=== PATIENT | female | born 1985 | race Caucasian/White ===

== ENCOUNTER → 2019-03-10 | Outpatient (CLI) | payer OTHER ==
--- NOTE | 2019-03-10 14:55 | US ---
EXAMINATION TYPE: US transvaginal DATE OF EXAM: 03/10/2019 COMPARISON: NONE CLINICAL HISTORY: R10.2 Pelvic pain; N92.6 Irregular menses. Irregular menses. TECHNIQUE: Transvaginal (TV). EXAM MEASUREMENTS: Uterus: 5.9 x 3.3 x 4.3 cm Endometrial Stripe: 0.5 cm Left Ovary: 2.3 x 1.3 x 1.9 cm 1. Uterus: Anteverted wnl 2. Endometrium: wnl 3. Right Ovary: Obscured by overlying bowel gas 4. Left Ovary: Follicles seen. 5. Bilateral Adnexa: wnl 6. Posterior cul-de-sac: wnl IMPRESSION: 1. No acute process.
== END | disposition home or self-care (01) ==
LOC: RADUSWWP 14:17
PROVIDERS: ATTEND Obstetrics & Gynecology
DX: N92.6 Irregular menstruation, unspecified (principal)
CPT/HCPCS: 76830

== ENCOUNTER 2020-07-31 14:53 | Emergency (ER) | payer BC, OTHER ==
[2020-07-31 15:15] VITALS: TEMP 98.4
--- NOTE | 2020-07-31 15:35 | ED ---
Abdominal Pain HPI - General Chief Complaint: Abdominal Pain Stated Complaint: Possible miscarriage Time Seen by Provider: 07/31/20 15:23 Source: patient, RN notes reviewed, old records reviewed Mode of arrival: ambulatory Limitations: no limitations - History of Present Illness Initial Comments: Patient is a 34-year-old female, . She has had one previous miscarriage and one previous ectopic which resulted in removal of the right ovary and fallopian tube. Patient reports that she had a positive test 2 days ago and started to have some lower left-sided abdominal cramping and pain for the past day. She also reports that he she noticed heavy vaginal bleeding. She states that the pain and bleeding meter concern for possible ectopic again. Her [employer] is Dr. Lizarraga. She denies any dysuria or changes in bowel habits. - Related Data Home Medications Medication Instructions Recorded Confirmed Levothyroxine Sodium [Synthroid] 25 mcg PO DAILY 07/16/16 08/17/16 Allergies Allergy/AdvReac Type Severity Reaction Status Date / Time nickel Allergy Rash/Hives Verified 07/31/20 15:14 Review of Systems ROS Statement: Those systems with pertinent positive or pertinent negative responses have been documented in the HPI. ROS Other: All systems not noted in ROS Statement are negative. Past Medical History Past Medical History: Thyroid Disorder Additional Past Medical History / Comment(s): She has had one SAB and 3 VD. This is her fifth . History of Any Multi-Drug Resistant Organisms: None Reported Past Surgical History: No Surgical Hx Reported Additional Past Surgical History / Comment(s): sugery for eptopic Past Anesthesia/Blood Transfusion Reactions: No Reported Reaction Past Psychological History: No Psychological Hx Reported Smoking Status: Never smoker Past Alcohol Use History: Occasional Past Drug Use History: None Reported - Past Family History Mother Family Medical History: Cancer Additional Family Medical History / Comment(s): Breast and cervical cancer General Exam - General Exam Comments Initial Comments: 34-year-old female. No distress. Limitations: no limitations General appearance: alert, in no apparent distress Head exam: Present: atraumatic, normocephalic, normal inspection Eye exam: Present: normal appearance, PERRL, EOMI. Absent: scleral icterus, conjunctival injection, periorbital swelling ENT exam: Present: normal exam Neck exam: Present: normal inspection. Absent: tenderness, meningismus, lymphadenopathy Respiratory exam: Present: normal lung sounds bilaterally. Absent: respiratory distress, wheezes, rales, rhonchi, stridor Cardiovascular Exam: Present: regular rate GI/Abdominal exam: Present: soft, normal bowel sounds. Absent: distended, tenderness, guarding, rebound, rigid Extremities exam: Present: normal inspection, full ROM, normal capillary refill. Absent: tenderness, pedal edema, joint swelling, calf tenderness Back exam: Present: normal inspection Neurological exam: Present: alert, oriented X3, CN II-XII intact Psychiatric exam: Present: normal affect, normal mood Skin exam: Present: warm, dry, intact, normal color. Absent: rash Course Vital Signs 07/31/20 15:12 Temperature 98.4 F Pulse Rate 75 Respiratory 20 Rate Blood Pressure 112/68 O2 Sat by Pulse 99 Oximetry Medical Decision Making - Lab Data Result diagrams: 07/31/20 15:46 07/31/20 15:46 Lab Results 07/31/20 07/31/20 07/31/20 Range/Units 15:30 15:46 15:46 WBC 3.6 L (3.8-10.6) k/uL RBC 4.81 (3.80-5.40) m/uL Hgb 14.4 (11.4-16.0) gm/dL Hct 42.9 (34.0-46.0) % MCV 89.2 (80.0-100.0) fL MCH 29.9 (25.0-35.0) pg MCHC 33.5 (31.0-37.0) g/dL RDW 12.8 (11.5-15.5) % Plt Count 197 (150-450) k/uL MPV 8.2 Neutrophils % 56 % Lymphocytes % 31 % Monocytes % 9 % Eosinophils % 1 % Basophils % 1 % Neutrophils # 2.0 (1.3-7.7) k/uL Lymphocytes # 1.1 (1.0-4.8) k/uL Monocytes # 0.3 (0-1.0) k/uL Eosinophils # 0.0 (0-0.7) k/uL Basophils # 0.0 (0-0.2) k/uL PT 9.5 (9.0-12.0) sec INR 0.9 (<1.2) APTT 24.7 (22.0-30.0) sec Sodium (137-145) mmol/L Potassium (3.5-5.1) mmol/L Chloride (98-107) mmol/L Carbon Dioxide (22-30) mmol/L Anion Gap mmol/L BUN (7-17) mg/dL Creatinine (0.52-1.04) mg/dL Est GFR (CKD-EPI)AfAm (>60 ml/min/1.73 sqM) Est GFR (CKD-EPI)NonAf (>60 ml/min/1.73 sqM) Glucose (74-99) mg/dL Calcium (8.4-10.2) mg/dL HCG, Quant mIU/mL Urine Color Urine Appearance (Clear) Urine pH (5.0-8.0) Ur Specific [place] (1.001-1.035) Urine Protein (Negative) Urine Glucose (UA) (Negative) Urine Ketones (Negative) Urine Blood (Negative) Urine Nitrite (Negative) Urine Bilirubin (Negative) Urine Urobilinogen (<2.0) mg/dL Ur Leukocyte Esterase (Negative) Urine RBC (0-5) /hpf Urine WBC (0-5) /hpf Ur Squamous Epith Cells (0-4) /hpf Urine Mucus (None) /hpf Blood Type B Positive Blood Type Recheck B Pos Bld Type Recheck Status No 07/31/20 07/31/20 Range/Units 15:46 15:46 WBC (3.8-10.6) k/uL RBC (3.80-5.40) m/uL Hgb (11.4-16.0) gm/dL Hct (34.0-46.0) % MCV (80.0-100.0) fL MCH (25.0-35.0) pg MCHC (31.0-37.0) g/dL RDW (11.5-15.5) % Plt Count (150-450) k/uL MPV Neutrophils % % Lymphocytes % % Monocytes % % Eosinophils % % Basophils % % Neutrophils # (1.3-7.7) k/uL Lymphocytes # (1.0-4.8) k/uL Monocytes # (0-1.0) k/uL Eosinophils # (0-0.7) k/uL Basophils # (0-0.2) k/uL PT (9.0-12.0) sec INR (<1.2) APTT (22.0-30.0) sec Sodium 139 (137-145) mmol/L Potassium 4.3 (3.5-5.1) mmol/L Chloride 106 (98-107) mmol/L Carbon Dioxide 27 (22-30) mmol/L Anion Gap 6 mmol/L BUN 7 (7-17) mg/dL Creatinine 0.59 (0.52-1.04) mg/dL Est GFR (CKD-EPI)AfAm >90 (>60 ml/min/1.73 sqM) Est GFR (CKD-EPI)NonAf >90 (>60 ml/min/1.73 sqM) Glucose 97 (74-99) mg/dL Calcium 8.9 (8.4-10.2) mg/dL HCG, Quant 4.7 mIU/mL Urine Color Yellow Urine Appearance Clear (Clear) Urine pH 6.5 (5.0-8.0) Ur Specific [place] 1.012 (1.001-1.035) Urine Protein Negative (Negative) Urine Glucose (UA) Negative (Negative) Urine Ketones Negative (Negative) Urine Blood Moderate H (Negative) Urine Nitrite Negative (Negative) Urine Bilirubin Negative (Negative) Urine Urobilinogen <2.0 (<2.0) mg/dL Ur Leukocyte Esterase Negative (Negative) Urine RBC 132 H (0-5) /hpf Urine WBC 1 (0-5) /hpf Ur Squamous Epith Cells 3 (0-4) /hpf Urine Mucus Rare H (None) /hpf Blood Type Blood Type Recheck Bld Type Recheck Status Disposition Clinical Impression: Threatened miscarriage Disposition: HOME SELF-CARE Condition: Good Instructions (If sedation given, give patient instructions): Threatened Miscarriage (ED) Additional Instructions: Repeat hCG in 2 days. Follow-up with Dr. Murillo. Return to the ED if any alarming signs or symptoms occur. Is patient prescribed a controlled substance at d/c from ED?: No Referrals: Zeus Elam DO [Primary Care Provider] - 1-2 days Duran Lizarraga MD [STAFF PHYSICIAN] - 1-2 days Time of Disposition: 17:16
[2020-07-31 15:57] LABS: Basophils % (A) 1 %; Eosinophils % (A) 1 %; HCT 42.9 % (34.0-46.0); HGB 14.4 gm/dL (11.4-16.0); Lymphocytes # (A) 1.1 k/uL (1.0-4.8); Lymphocytes % (A) 31 %; MCH 29.9 pg (25.0-35.0); MCHC 33.5 g/dL (31.0-37.0); MCV 89.2 fL (80.0-100.0); Mean Platelet Volume 8.2; Monocytes # (A) 0.3 k/uL (0-1.0); Monocytes % (A) 9 %; Neutrophils % (A) 56 %; Platelet Count 197 k/uL (150-450); RBC 4.81 m/uL (3.80-5.40); RDW 12.8 % (11.5-15.5); WBC 3.6 k/uL (3.8-10.6)
[2020-07-31 16:05] LABS: Appearance,Urine Clear (Clear); Bilirubin,Urine Negative (Negative); Blood,Urine Moderate (Negative); Color,Urine Yellow; Glucose,Urine (UA) Negative (Negative); Ketones,Urine Negative (Negative); Leukocyte Esterase,Urine Negative (Negative); Mucus,Urine Rare /hpf; Nitrite,Urine Negative (Negative); PH, Urine 6.5 (5.0-8.0); Protein,Urine Negative (Negative); RBC,Urine 132 /hpf (0-5); Specific Gravity,Urine 1.012 (1.001-1.035); Squamous Epithelial Cell,Urine 3 /hpf (0-4); Urobilinogen,Urine <2.0 mg/dL (<2.0); WBC,Urine 1 /hpf (0-5)
[2020-07-31 16:06] LABS: African American GFR (CKD) >90 (>60 ml/min/1.73 sqM); Anion Gap 6 mmol/L; Blood Urea Nitrogen 7 mg/dL (7-17); Calcium 8.9 mg/dL (8.4-10.2); Carbon Dioxide 27 mmol/L (22-30); Chloride 106 mmol/L (98-107); Glucose 97 mg/dL (74-99); Non-African American GFR(CKD) >90 (>60 ml/min/1.73 sqM); Potassium 4.3 mmol/L (3.5-5.1); Sodium 139 mmol/L (137-145)
[2020-07-31 16:09] LABS: INR 0.9 (<1.2); Partial Thromboplastin Time 24.7 sec (22.0-30.0); Prothrombin Time 9.5 sec (9.0-12.0)
[2020-07-31 16:23] LABS: HCG,Quantitative Serum 4.7 mIU/mL
--- NOTE | 2020-07-31 16:53 | US ---
EXAMINATION TYPE: US transvaginal DATE OF EXAM: 07/31/2020 COMPARISON: NONE CLINICAL HISTORY: Left sided pain TECHNIQUE: Transvaginal (TV). Date of LMP: 06-25-20 EXAM MEASUREMENTS: Uterus: 8.8 x 4.2 x 4.6 cm Endometrial Stripe: 1.3 cm Right Ovary: 2.0 x 1.1 x 1.3 cm Left Ovary: 1.7 x 1.0 x 0.9 cm 1. Uterus: Anteverted wnl 2. Endometrium: wnl 3. Right Ovary: wnl 4. Left Ovary: wnl Spectral, color and waveform doppler imaging shows good arterial and venous flow within the ovaries ; there is no evidence for ovarian torsion. 5. Bilateral Adnexa: wnl 6. Posterior cul-de-sac: wnl No sign of ectopic . IMPRESSION: Normal uterus and endometrium. Normal ovaries. No evidence of ovarian torsion. No evidence of intraut erine gestational sac. No adnexal mass. No sign of ectopic .
[2020-07-31 17:20] VITALS: RESP 18
[2020-07-31 17:32] VITALS: BP 116/72; PULSE 66
== END 2020-07-31 17:32 | disposition home or self-care (01) ==
LOC: EC 14:53
DX: O20.0 Threatened abortion (principal); Z91.048 Other nonmedicinal substance allergy status; Z3A.01 Less than 8 weeks gestation of pregnancy; O99.281 Endocrine, nutritional and metabolic diseases complicating pregnancy, first trimester; Z79.890 Hormone replacement therapy; Z87.59 Personal history of other complications of pregnancy, childbirth and the puerperium
CPT/HCPCS: 36415; 76830; 80048; 81001; 84702; 85025; 85610; 85730; 86900; 86901; 99284

== ENCOUNTER → 2021-12-07 | Outpatient (CLI) | payer OTHER ==
--- NOTE | 2021-12-09 10:16 | MM ---
Reason for exam: screening (asymptomatic). Baseline mammogram. History: Family history of breast cancer in mother at age 47 and breast cancer in maternal grandmother. Physical Findings: A clinical breast exam by your physician is recommended on an annual basis and results should be correlated with mammographic findings. MG 3D Screening Mammo W/Cad Bilateral CC and MLO view(s) were taken. The breast tissue is heterogeneously dense. This may lower the sensitivity of mammography. There is no discrete abnormality. ASSESSMENT: Negative, BI-RAD 1 RECOMMENDATION: Routine screening mammogram of both breasts at age 41.
== END | disposition home or self-care (01) ==
LOC: RADMAMWWP 09:58
PROVIDERS: ATTEND Obstetrics & Gynecology
DX: Z12.31 Encounter for screening mammogram for malignant neoplasm of breast (principal); Z80.3 Family history of malignant neoplasm of breast
CPT/HCPCS: 77063; 77067

== ENCOUNTER → 2023-05-22 | Outpatient (CLI) | payer OTHER ==
--- NOTE | 2023-05-31 00:50 | HM ---
HOLTER MONITOR REPORT STUDY PERFORMED: A 72-hour Holter. INDICATIONS: Palpitations. FINDINGS: Underlying rhythm is sinus with an average heart rate of 80 beats per minute. Heart rate varied from 48 beats per minute to 150 beats per minute. There were episodes of sinus tachycardia. Rare PVCs are noted. The patient's symptoms did not correlate with significant Holter abnormalities. CONCLUSIONS: This is a 72-hour Holter monitor shows sinus rhythm with episodes of sinus tachycardia and sinus bradycardia. MMODL / IJN: [id number] /
== END | disposition home or self-care (01) ==
LOC: RADECHMAIN 11:48
PROVIDERS: ATTEND Family Medicine
DX: R00.2 Palpitations (principal); R00.0 Tachycardia, unspecified; R00.1 Bradycardia, unspecified
CPT/HCPCS: 93225; 93226

== ENCOUNTER 2024-12-20 19:22 | Inpatient (IN) | payer OTHER ==
[2024-12-20] MEDS ORDERED: miSOPROStoL 200 MCG TAB RECTAL PRN (19:38)
[2024-12-20] MEDS ORDERED: METHYLERGONOVINE 0.2 MG/ML 1 ML AMP IM PRN (19:38)
[2024-12-20] MEDS ORDERED: TERBUTALINE 1 MG/ML VIAL SQ PRN (19:38)
[2024-12-20] MEDS ORDERED: miSOPROStoL 200 MCG TAB PO PRN (19:38)
[2024-12-20] MEDS ORDERED: TRANEXAMIC 1,000 MG/100ML-NACL 1,000 MG in EMPTY BAG 1 BAG IV PRN (19:38)
[2024-12-20] MEDS ORDERED: OXYTOCIN 10 UNIT/ML 1 ML VIAL IM PRN (19:38)
[2024-12-20] MEDS ORDERED: CARBOPROST TROMETHAMINE 250 MCG/ML 1 ML AMP IM PRN (19:38)
[2024-12-20] MEDS ORDERED: LIDOCAINE 0.5% (PF) 5 MG/ML (50 ML SDV) SQ PRN (19:38)
[2024-12-20] MEDS: LACTATED RINGERS 1,000 ML IV SCH (19:40)
[2024-12-20 20:14] LABS: Basophils # (A) 0.01 10*3/uL (0.00-0.10); Basophils % (A) 0.1 %; Eosinophils # (A) 0.02 10*3/uL (0.04-0.35); Eosinophils % (A) 0.3 %; HCT 25.7 % (37.2-46.3); HGB 7.8 g/dL (12.0-15.0); Immature Platelet Fraction 10.7 % (1.1-6.1); Lymphocytes % (A) 18.4 %; MCH 22.7 pg (27.0-32.0); MCHC 30.4 g/dL (32.0-37.0); MCV 74.7 fL (80.0-97.0); Mean Platelet Volume 12.4 fL (9.5-12.2); Monocytes # (A) 0.58 10*3/uL (0.20-1.00); Monocytes % (A) 8.2 %; Neutrophils # (A) 5.13 10*3/uL (1.80-7.70); Neutrophils % (A) 72.6 %; Platelet Count 215 10*3/uL (140-440); RBC 3.44 10*6/uL (4.10-5.20); RDW 16.1 % (11.5-14.5); WBC 7.07 10*3/uL (4.50-10.00)
[2024-12-21] MEDS: OXYTOCIN 30 UNITS/500 ML NS 30 UNIT in SALINE 1 500ML.BAG IV SCH (05:11)
[2024-12-21] MEDS ORDERED: SODIUM CHLORIDE 0.9% 250 ML BAG ONE (08:52)
[2024-12-21] MEDS ORDERED: fentaNYL (PF) 50 MCG/ML 5 ML AMP ONE (08:52)
[2024-12-21] MEDS ORDERED: ROPIVACAINE 5 MG/ML 30 ML VIAL ONE (08:52)
--- NOTE | 2024-12-21 10:13 | P.HPOB ---
History of Present Illness H&P Date: 12/21/24 Chief Complaint: 39-2/7 weeks, spontaneous rupture of membranes, labor The patient is a 39-year-old 7 para 3-0-3-3 admitted at 39-2/7 weeks as established by last menstrual period and confirmed by second trimester ultrasound. She is admitted with documented spontaneous rupture of membranes in early labor. Her has been uncomplicated. She does fall into the category of advanced maternal age and underwent fraction testing for trisomy which was normal/negative. On labor and delivery, all signs are reassuring with a category 1 heart rate tracing. Group B strep status is negative. Obstetrical history: 7 para 3-0-3-3 with 3 term vaginal deliveries without complications. Current statistics are listed in history of present illness. EDC of 12/25/2024 was established by last menstrual period and confirmed by second trimester ultrasound. Laboratory workup demonstrates a blood type of B+ with a negative antibody screen. Rubella status is immune. The remainder of the laboratory workup was within normal limits. fraction testing was negative/normal. 1 hour Glucola was normal and group B strep status is negative. Gynecologic history: Unremarkable with no history of any infections to include STDs. Review of Systems Review of systems is confined to history of present illness. Past Medical History Past Medical History: Thyroid Disorder Additional Past Medical History / Comment(s): She has had one SAB and 3 VD. This is her fifth . History of Any Multi-Drug Resistant Organisms: None Reported Past Surgical History: No Surgical Hx Reported Additional Past Surgical History / Comment(s): sugery for eptopic Past Anesthesia/Blood Transfusion Reactions: No Reported Reaction Past Psychological History: No Psychological Hx Reported Smoking Status: Never smoker Past Alcohol Use History: Occasional Past Drug Use History: None Reported - Past Family History Mother Family Medical History: Cancer Additional Family Medical History / Comment(s): Breast and cervical cancer Medications and Allergies Home Medications Medication Instructions Recorded Confirmed Type Folic Acid 0.4 mg PO DAILY 07/31/20 12/20/24 History Fti-Vngi-Ryjsy Acid 1 cap PO DAILY 07/31/20 12/20/24 History [-U Capsule (formulary)] Allergies Allergy/AdvReac Type Severity Reaction Status Date / Time egg Allergy Rash/Hives Verified 07/31/20 17:19 Milk Containing Products Allergy Rash/Hives Verified 07/31/20 17:19 (Dairy) [Dairy] nickel Allergy Rash/Hives Verified 07/31/20 15:14 nut - unspecified Allergy Rash/Hives Verified 07/31/20 17:19 soy Allergy Rash/Hives Verified 07/31/20 17:19 Exam Vital Signs Temp Pulse Resp BP Pulse Ox 12/20/24 21:10 97.3 F L 88 16 118/74 98 12/20/24 19:42 97.3 F L 88 16 118/74 98 Intake and Output 12/20/24 12/21/24 12/21/24 22:59 06:59 14:59 Other: # Voids 2 2 Weight 70.307 kg General, this is a well-developed, well-nourished white female in no acute distress. Her heart has a regular rhythm and rate without murmur. Her lungs clear to auscultation bilaterally in all herrmann. Abdomen is gravid, nondistended, has normal active bowel sounds, soft, nontender, and without any palpable masses aside from the uterine fundus. Her extremities are without any cyanosis, clubbing, or edema and are nontender to palpation. Most recent digital cervical examination demonstrates her cervix to be approximately 6 cm dilated, 70% effaced, with the vertex and presentation -2 station. Spontaneous rupture of membranes has been documented. Results Result Diagrams: 12/20/24 19:46 Abnormal Lab Results - Last 24 Hours (Table) 12/20/24 Range/Units 19:46 RBC 3.44 L (4.10-5.20) 10*6/uL Hgb 7.8 L (12.0-15.0) g/dL Hct 25.7 L (37.2-46.3) % MCV 74.7 L (80.0-97.0) fL MCH 22.7 L (27.0-32.0) pg MCHC 30.4 L (32.0-37.0) g/dL MPV 12.4 H (9.5-12.2) fL Eosinophils # 0.02 L (0.04-0.35) 10*3/uL Immature Plt Fraction 10.7 H (1.1-6.1) % Assessment and Plan (1) Active labor at term Current Visit: Yes Status: Acute Code(s): GEK4407 - SNOMED Code(s): 63435057 Plan: Patient has been admitted for active management of labor. Pitocin augmentation has been started and an epidural catheter has been placed for analgesia. We will anticipate normal spontaneous vaginal delivery. The patient will continue to have close maternal and surveillance and expectant management be practiced.
[2024-12-21] MEDS: PENICILLIN G POTASSIUM 5,000,000 UNIT in SODIUM CHLORIDE 0.9% 100 ML IVPB STA (11:26)
[2024-12-21] MEDS ORDERED: LANOLIN CREAM 1 GM TUBE TOPICAL PRN (12:48)
[2024-12-21] MEDS ORDERED: diphenhydrAMINE 50 MG/ML 1 ML VIAL IVP PRN ×2 (12:48)
[2024-12-21] MEDS ORDERED: SIMETHICONE 80 MG CHEWABLE PO PRN (12:48)
[2024-12-21] MEDS ORDERED: ZOLPIDEM 5 MG TAB PO PRN (12:48)
[2024-12-21] MEDS ORDERED: ACETAMINOPHEN TAB 500 MG TAB PO PRN (12:48)
[2024-12-21] MEDS ORDERED: BENZOCAINE/MENTHOL SPRAY 1 GM/SPRAY AEROSOL TOPICAL PRN (12:48)
[2024-12-21] MEDS ORDERED: HYDROCORTISONE 2.5% RECTAL CREAM 30 GM TUBE RECTAL PRN (12:48)
[2024-12-21] MEDS ORDERED: diphenhydrAMINE 50 MG CAP PO PRN (12:48)
[2024-12-21] MEDS ORDERED: diphenhydrAMINE 25 MG CAP PO PRN (12:48)
--- NOTE | 2024-12-21 12:52 | P.PROBDLV ---
Vaginal Delivery Note - . Vaginal Delivery Note: Date of service/delivery: 12/21/2024 The patient is a 39-year-old 7 para 3-0-3-3 admitted at 39-2/7 weeks by good dating parameters. She is admitted with documented spontaneous rupture of membranes with clear fluid. On labor delivery, all signs are reassuring with a category 1 heart rate tracing. Her has been entirely uncomplicated. She does fall into the category of advanced maternal age and had normal or negative fraction testing for trisomy. Group B strep status is negative. As she was making little progress on her own, Pitocin augmentation was added. An epidural catheter was placed around the onset of the active phase of labor. She made steady progress through the active phase of labor to complete and pushed over the course of approximately 20 minutes to a normal spontaneous vaginal delivery of a viable 8 pound 13 ounce baby girl with Apgars of 8 at 1 minute and 9 at 5 minutes delivered in the direct occiput anterior position. The placenta was delivered spontaneously, intact, and grossly normal with a grossly normal three-vessel cord inserted approximately 4 cm from the margin of the placental disc. There was a small second-degree midline perineal laceration over the site of a previous laceration which was repaired in standard fashion using 3-0 chromic catgut without difficulty. Estimated blood loss for the case was approximately 150 mL. There were no complications. All sponge, instrument, and needle counts were correct. Both mother and are resting comfortably in recovery.
[2024-12-21] MEDS ORDERED: OXYTOCIN 30 UNITS/500 ML NS 30 UNIT in SALINE 1 500ML.BAG IV SCH (13:00)
[2024-12-21] MEDS ORDERED: PENICILLIN G POTASSIUM 2,500,000 UNIT in SODIUM CHLORIDE 0.9% 100 ML IVPB SCH (15:00)
[2024-12-21] MEDS: SENNOSIDES-DOCUSATE SODIUM 1 EACH TAB PO SCH (20:22)
[2024-12-22] MEDS: IBUPROFEN 800 MG TAB PO PRN (04:40)
[2024-12-22 06:11] LABS: Basophils # (A) 0.02 10*3/uL (0.00-0.10); Basophils % (A) 0.2 %; Eosinophils # (A) 0.02 10*3/uL (0.04-0.35); Eosinophils % (A) 0.2 %; HCT 24.8 % (37.2-46.3); HGB 7.4 g/dL (12.0-15.0); Lymphocytes # (A) 1.42 10*3/uL (0.90-5.00); Lymphocytes % (A) 16.3 %; MCHC 29.8 g/dL (32.0-37.0); Mean Platelet Volume 11.6 fL (9.5-12.2); Monocytes # (A) 0.58 10*3/uL (0.20-1.00); Monocytes % (A) 6.7 %; Neutrophils # (A) 6.65 10*3/uL (1.80-7.70); Neutrophils % (A) 76.3 %; Platelet Count 182 10*3/uL (140-440); RBC 3.22 10*6/uL (4.10-5.20); RDW 16.2 % (11.5-14.5); WBC 8.72 10*3/uL (4.50-10.00)
--- NOTE | 2024-12-22 09:38 | P.DS ---
Providers Date of admission: 12/20/24 19:30 Expected date of discharge: 12/22/24 Attending physician: Qing Diaz Primary care physician: Stated None - Discharge Diagnosis(es) (1) Normal spontaneous vaginal delivery Current Visit: Yes Status: Acute Hospital Course: Patient presented in active labor. She had a normal vaginal delivery. course has been uneventful. She denies nausea, vomiting, chest pain, shortness of breath or calf pain. Patient will be discharged home day #1 in stable condition to follow-up with me in 6 weeks. Plan - Discharge Summary New Discharge Prescriptions: No Action Plt-Lcug-Euskv Acid [-U Capsule (formulary)] 1 cap PO DAILY Folic Acid 0.4 mg PO DAILY Discharge Medication List Folic Acid 0.4 mg PO DAILY 07/31/20 [History] Nkw-Cqaw-Ookck Acid [-U Capsule (formulary)] 1 cap PO DAILY 07/31/20 [History] Follow up Appointment(s)/Referral(s): Qing Diaz DO [Doctor of Osteopathic Medicine] - 6 Weeks Discharge Disposition: HOME SELF-CARE
[2024-12-22 12:59] VITALS: BP 117/63; PULSE 65; RESP 14; TEMP 98
== END 2024-12-22 14:40 | disposition home or self-care (01) | DRG 560 ==
LOC: FBPOP 19:22 → 4FBP 19:30
PROVIDERS: ADMIT Obstetrics & Gynecology; ATTEND Obstetrics & Gynecology
PROC: 10E0XZZ Delivery of Products of Conception, External Approach (ICD-10-PCS; principal; 2024-12-21)
PROC: 0KQM0ZZ Repair Perineum Muscle, Open Approach (ICD-10-PCS; principal; 2024-12-21)
DX: O99.284 Endocrine, nutritional and metabolic diseases complicating childbirth (principal); E07.9 Disorder of thyroid, unspecified; O70.1 Second degree perineal laceration during delivery; Z3A.39 39 weeks gestation of pregnancy; Z37.0 Single live birth
CPT/HCPCS: 85025; 86850; 86900; 86901